=== PATIENT | male | born 1935 | race Hispanic/Latino ===

== ENCOUNTER 2021-01-27 07:33 | Day surgery (SDC) | payer OTHER ==
[~2021-01-27 07:33] MED LIST: FINA5TAB41 PO; GLIP1TAB5 PO; NITR0.4T SL; PANT40TA55 PO; PIND10TA2 PO; RANO500T3 PO; TAMS0.4C32 PO
[2021-01-27 07:46] VITALS: BP 142/75
[2021-01-27] MEDS ORDERED: COSYNTROPIN 0.25 MG VIAL IVP SCH ×2 (08:30)
[2021-01-27 09:15] VITALS: BP 146/72
== END 2021-01-27 09:45 | disposition home or self-care (01) ==
LOC: DAH 07:33
PROVIDERS: ATTEND Internal Medicine Cardiovascular Disease
DX: R06.02 Shortness of breath (principal); R53.83 Other fatigue
CPT/HCPCS: 36415; 82533 ×3; 82948; A4215; A4216; A4221; A4222; A4223 ×3; A4606; A4663; J0834

== ENCOUNTER → 2021-02-04 | Outpatient (CLI) | payer OTHER ==
[~2021-02-04] MED LIST changes: +ALBUTEROL 0.083% 2.5 MG/3 ML INH IH ONE
== END | disposition home or self-care (01) ==
LOC: RESP 10:00
PROVIDERS: ATTEND Internal Medicine Cardiovascular Disease
DX: R06.02 Shortness of breath (principal)
CPT/HCPCS: 94060; 94727; 94729

== ENCOUNTER → 2023-04-01 | Outpatient (CLI) | payer OTHER ==
[~2023-04-01] MED LIST changes: -ALBUTEROL 0.083% 2.5 MG/3 ML INH IH ONE
[2023-04-01 12:27] LABS: ALBUMIN 3.5 g/dL (3.5-5.0); BILIRUBIN,TOTAL 0.7 mg/dL (0.2-1.0); CREATININE 1.4 mg/dL (0.5-1.5); POTASSIUM 4.1 mmol/L (3.5-5.1); TOTAL PROTEIN, SERUM 6.7 g/dL (6.0-8.3)
== END | disposition home or self-care (01) ==
LOC: LAB 08:21
PROVIDERS: ATTEND Internal Medicine Cardiovascular Disease
DX: E78.5 Hyperlipidemia, unspecified (principal); I95.1 Orthostatic hypotension
CPT/HCPCS: 36415; 80053; 80061